=== PATIENT | male | born 1935 | race Two or more races ===

== ENCOUNTER 2019-03-02 15:12 | Inpatient (IN) | payer MEDICARE, MEDICAID ==
[~2019-03-02] VITALS: Ht 165.1 cm; Wt 74.4 kg
--- NOTE | 2019-03-02 15:22 | NUR ---
PATIENT BIB RA FROM [facility]. PATIENT AWAKE, ALERT AND ORIENTED X 2. VERBALLY RESPONSIVE AND RESPONDS T O VERBAL AND TACTILE STIMULI. NO ACUTE DISTRESS. NOTED WITH OLD TRACH SITE, STOMA PRESENT COVERED WITH DRY DRESSING. DR. HUBBARD AT BEDSIDE. WILL CONTINUE TO MONITOR
[2019-03-02] MEDS ORDERED: FAMO20TA8 PO (15:32)
[2019-03-02] MEDS ORDERED: BISA10SU61 RC (15:32)
[2019-03-02] MEDS ORDERED: APIX2.5T PO (15:32)
[2019-03-02] MEDS ORDERED: MAGN400O6 PO (15:32)
[2019-03-02] MEDS ORDERED: MV-M1CAP15 PO (15:32)
[2019-03-02] MEDS ORDERED: QUET25TA PO (15:32)
[2019-03-02] MEDS ORDERED: ASCO500T9 PO (15:32)
[2019-03-02] MEDS ORDERED: METO25TA3 PO (15:32)
[2019-03-02] MEDS ORDERED: SENN-168 PO (15:32)
[2019-03-02] MEDS ORDERED: BUME0.5T5 PO (15:32)
[2019-03-02] MEDS ORDERED: DOCU-141 PO (15:32)
[2019-03-02] MEDS ORDERED: ACET-868 PO (15:32)
[2019-03-02] MEDS ORDERED: POLY17PO4 PO (15:32)
[2019-03-02] MEDS ORDERED: ALBU0.633 IH (15:32)
[2019-03-02] MEDS ORDERED: LACT20SO4 PO (15:32)
[2019-03-02] MEDS ORDERED: ATOR40TA PO (15:32)
[2019-03-02] MEDS ORDERED: QUET50TA PO (15:32)
[2019-03-02 15:37] LABS: BASOPHILS # (AUTO) 0.1 /CMM (0.0-0.2); BASOPHILS % (AUTO) 0.7 % (0.0-2.0); EOSINOPHILS % (AUTO) 1.7 % (0.0-6.0); HEMATOCRIT 37 % (39-51); HEMOGLOBIN 12.2 g/dL (13.5-17.5); LYMPHOCYTES # (AUTO) 1.3 /CMM (0.8-4.8); LYMPHOCYTES % (AUTO) 18.5 % (20.0-44.0); MEAN CORPUSCULAR HGB CONC 33 g/dl (31.0-36.0); MEAN CORPUSCULAR VOLUME 86 fL (80-96); MONOCYTES # (AUTO) 0.5 /CMM (0.1-1.30); MONOCYTES % (AUTO) 6.9 % (2.0-12.0); NEUTROPHILS # (AUTO) 5.2 /CMM (1.8-8.9); NEUTROPHILS % (AUTO) 72.2 % (43.0-81.0); PLATELET COUNT (AUTO) 191 /CMM (150-450); RED BLOOD CELL COUNT(AUTO) 4.34 MIL/uL (4.5-6.0); WHITE BLOOD COUNT (AUTO) 7.2 K/uL (4.3-11.0)
[2019-03-02 15:44] LABS: CARBON DIOXIDE 30 mmol/L (21-32); CHLORIDE 103 mmol/L (98-107); CREATININE 2.3 mg/dL (0.6-1.3); GLUCOSE 120 mg/dL (74-106); POTASSIUM 4.5 mmol/L (3.5-5.1); SODIUM SERUM 139 mmol/L (136-145); UREA NITROGEN, BLOOD 76 mg/dL (7-18)
[2019-03-02 15:50] LABS: ACETAMINOPHEN < 2 ug/ml (10-30); ALANINE AMINOTRANSFERASE 23 U/L (12-78); ALBUMIN 3.9 g/dL (3.4-5.0); ALCOHOL, BLOOD < 3 mg/dL (0-0); ALKALINE PHOSPHATASE 66 U/L (46-116); ASPARTATE AMINOTRANSFERASE 19 U/L (15-37); BILIRUBIN,DIRECT 0.2 mg/dL (0.0-0.2); BILIRUBIN,TOTAL 0.5 mg/dL (0.2-1.0); SALICYLATE < 2.8 mg/dL (2.8-20.0); TOTAL PROTEIN, SERUM 8.4 g/dL (6.4-8.2)
--- NOTE | 2019-03-02 15:50 | NUR ---
URINE COLLECTED AND SENT TO LAB
[2019-03-02] MEDS ORDERED: IV NS 0.9% 1,000 ML IV ONE (16:00)
[2019-03-02 16:15] LABS: APPEARANCE,URINE Clear (CLEAR); BILIRUBIN,URINE Negative (NEGATIVE); BLOOD, URINE Small Ery/uL (NEGATIVE); COLOR,URINE Yellow (YELLOW); KETONES,URINE Negative (NEGATIVE); LEUKOCYTE ESTERASE ,URINE Small (NEGATIVE); NITRITE, URINE Negative (NEGATIVE); PROTEIN,URINE Trace mg/dl (NEGATIVE); UGLUCOSE Negative (NEGATIVE); UROBILINOGEN,URINE 0.2 EU/dL (0.2)
[2019-03-02 16:19] LABS: BACTERIA,URINE 1+ /HPF (None Seen); SQUAMOUS EPITHELIAL CELL,UR Few /HPF (None Seen)
--- NOTE | 2019-03-02 19:10 | NUR ---
PLACED CALL TO GPS TO GIVE REPORT BUT PER OPERATIONS PLANT ATTENDANT, RECEIVING RN IS RECEIVING SHIFT CHANGE REPORT AT THIS TIME AND IS REQUESTING TO CALL BACK. SITTER REMAINS AT BEDSIDE. ENDORSED TO JAMES HALEY FOR ALLISON.
--- NOTE | 2019-03-02 20:00 | NUR ---
PT WAS TRANSFERRED TO 215 IN STABLE CONDITION.
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
[2019-03-02] MEDS ORDERED: MAG HYDROX/AL HYDROX/SIMETH 30 ML UDC PO PRN (20:30)
[2019-03-02] MEDS ORDERED: MAGNESIUM HYDROXIDE 30 ML UDC PO PRN (20:30)
[2019-03-02] MEDS ORDERED: ACETAMINOPHEN 325 MG TABLET PO PRN ×2 (20:30→23:30)
--- NOTE | 2019-03-02 21:11 | NUR ---
GPS RN NOTE, PATIENT UA RESULTS ARE FOLLOWS URINE LEUKOCYTE ESTERASE SMALL, URINE WBC 6-10 H, AND URINE BACTERIA 1+H. PATIENT ALSO NEEDS MED RECON REVIEWED AND APPROVED. PAGED [facility] AND INFORMED EMMANUEL HARRIS DNP OF MY FINDINGS. EMMANUEL HARRIS DNP ORDERED KEFLEX 250MG PO TID X 10 DAYS TO START IN THE A.M.. EMMANUEL HARRIS DNP ALSO SAID HE WILL REVIEW AND APPROVE MED RECON SOON POSSIBLE. ALL ORDERS NOTED AND CARRIED OUT. WILL CONTINUE TO MONITOR THIS PATIENT.
[2019-03-02] MEDS ORDERED: TEMAZEPAM 7.5 MG CAPSULE PO PRN (21:30)
--- NOTE | 2019-03-02 22:28 | NUR ---
GPS RN NOTE, PATIENT HAS A COMPLAINT OF NOT BEING ABLE TO SLEEP AND IS REQUESTING RESTORIL AT THIS TIME. PATIENT VITAL SIGNS ARE STABLE. GAVE RESTORIL 7.5MG PO HS PRN ORDERED. WILL REASSESS FOR INSOMNIA AND I WILL CONTINUE TO MONITOR THIS PATIENT.
[2019-03-02] MEDS ORDERED: BISACODYL SUPP (10 MG) 10 MG/SUPP.RECT SUPP.RECT RC SCH (23:30)
[2019-03-03] MEDS ORDERED: Z GUARD REMEDY 2 OZ OINT TP PRN (01:30)
--- NOTE | 2019-03-03 06:25 | NUR ---
PATIENT WAS PLACED ON 1:1 SITTER FOR HIGH FALL RISK.
[2019-03-03 08:00] VITALS: BP 129/65
[2019-03-03 09:42] LABS: CHOLESTEROL 96 mg/dL (<200); HDL CHOLESTEROL 42 mg/dL (40-60); LDL 50 mg/dL (0-99); TRIGLYCERIDES 44 mg/dL (30-150)
[2019-03-03] MEDS: CEPHALEXIN MONOHYDRATE 250 MG CAPSULE PO SCH ×3 (10:02→18:22)
[2019-03-03] MEDS: LORAZEPAM 0.5 MG TABLET PO PRN ×2 (10:02→21:29)
--- NOTE | 2019-03-03 10:02 | NUR ---
given ativan for agitation.
[2019-03-03] MEDS: BUMETANIDE (1 MG) 1 MG TABLET PO SCH (10:03)
[2019-03-03] MEDS: FAMOTIDINE (20 MG) 20 MG TABLET PO SCH (10:04)
[2019-03-03] MEDS: METOPROLOL SUCCINATE 25 MG TAB.SR.24H PO SCH ×2 (10:04→18:23)
[2019-03-03] MEDS: POLYETHYLENE GLYCOL 3350 17 GM POWD.PACK PO SCH (10:05)
[2019-03-03] MEDS: APIXABAN 2.5 MG TABLET PO SCH ×2 (10:07→18:22)
--- NOTE | 2019-03-03 11:08 | NUR ---
WOUND CARE CONSULT: PT PRESENTS WITH SACRAL SCARRING, TRACH STOMA, RT ABOVE KNEE AMPUTATION STUMP (CLEAR), PRESENT ON ADMISSION. DEFER TO MD FOR STOMA. PT TURNS AND REPOSITIONS HIMSELF IN BED AND IS ABLE TO TRANSFER TO WHEELCHAIR WITH ASSISTANCE. SITTER AT BEDSIDE. PT IS INCONTINENT. RECOMMENDATIONS MADE FOR SKIN PROTECTION. DISCUSSED WITH NURSING STAFF. WILL SEE PRN. MD IN AGREEMENT WITH PLAN OF CARE. CURRENT RAIMUNDO SCORE IS I7. Addendum: 03/03/19 at 1111 by JULY BRUNNER WNDNU Amended: Links added.
[2019-03-03 16:00] VITALS: BP 139/50
--- NOTE | 2019-03-03 16:00 | NUR ---
Elder Counselor Group Session-- Goal: Patient will attend group being held today from 11am -11:45 in the activities room and participate and/or actively listen to peers and be respectful. Intervention: SW invited patient to attend group session with peers regarding: the goal or positive outcome/s each pt. would like to see happen as a result of their stay in [facility]. SW respected patient�s self-determination and will continue to invite patient to future group sessions. Response: Patient declined to participate in today�s group social worker aide session. Plan: Patient will be invited to attend next social worker aide group held.
--- NOTE | 2019-03-03 17:30 | NUR ---
NOTED POX 90% WITH AFTERNOON VITALS-RECHECKED AND 89% TO 94%.PT. REQUESTED .02-APPLIED.
[2019-03-03] MEDS: DIVALPROEX SODIUM 125 MG TABLET.DR PO SCH ×2 (18:22→21:29)
[2019-03-03 19:46] VITALS: BP 141/59
[2019-03-03] MEDS: ATORVASTATIN 40 MG TABLET PO SCH (21:28)
[2019-03-03] MEDS: TEMAZEPAM 7.5 MG CAPSULE PO PRN (21:29)
[2019-03-03] MEDS: QUETIAPINE FUMARATE 100 MG TABLET PO SCH (21:29)
[2019-03-04 08:00] VITALS: BP 131/62
[2019-03-04] MEDS: QUETIAPINE FUMARATE 25 MG TABLET PO SCH (08:13)
[2019-03-04] MEDS: APIXABAN 2.5 MG TABLET PO SCH ×2 (08:13→16:19)
[2019-03-04] MEDS: CEPHALEXIN MONOHYDRATE 250 MG CAPSULE PO SCH ×3 (08:14→16:18)
[2019-03-04] MEDS: DIVALPROEX SODIUM 125 MG TABLET.DR PO SCH ×3 (08:14→22:02)
[2019-03-04] MEDS: BUMETANIDE (1 MG) 1 MG TABLET PO SCH (08:15)
[2019-03-04] MEDS: METOPROLOL SUCCINATE 25 MG TAB.SR.24H PO SCH ×2 (08:15→16:18)
[2019-03-04] MEDS: POLYETHYLENE GLYCOL 3350 17 GM POWD.PACK PO SCH (08:15)
[2019-03-04] MEDS: FAMOTIDINE (20 MG) 20 MG TABLET PO SCH (08:15)
[2019-03-04 16:18] VITALS: BP 133/69
[2019-03-04 16:39] VITALS: BP 133/69
[2019-03-04 20:00] VITALS: BP 120/52
[2019-03-04] MEDS: ATORVASTATIN 40 MG TABLET PO SCH (22:02)
[2019-03-04] MEDS: TEMAZEPAM 7.5 MG CAPSULE PO PRN (22:02)
[2019-03-04] MEDS: QUETIAPINE FUMARATE 100 MG TABLET PO SCH (22:02)
[2019-03-05 08:00] VITALS: BP 131/59
[2019-03-05] MEDS: BUMETANIDE (1 MG) 1 MG TABLET PO SCH (08:24)
[2019-03-05] MEDS: CEPHALEXIN MONOHYDRATE 250 MG CAPSULE PO SCH ×3 (08:24→16:10)
[2019-03-05] MEDS: FAMOTIDINE (20 MG) 20 MG TABLET PO SCH (08:25)
[2019-03-05] MEDS: DIVALPROEX SODIUM 125 MG TABLET.DR PO SCH ×3 (08:25→21:53)
[2019-03-05] MEDS: METOPROLOL SUCCINATE 25 MG TAB.SR.24H PO SCH ×2 (08:26→16:09)
[2019-03-05] MEDS: QUETIAPINE FUMARATE 25 MG TABLET PO SCH (08:26)
[2019-03-05] MEDS: POLYETHYLENE GLYCOL 3350 17 GM POWD.PACK PO SCH (08:29)
--- NOTE | 2019-03-05 10:26 | NUR ---
Per JANUARY Wood: JANUARY contacted and spoke to patient's responsible democrat, Nephew-Bay [phone] who stated that the patient has a hx. of aggressive behavior and that was the reason he began to reside at [facility].Per Bay, the patient was diagnosed with Dementia about 2 months ago. Per Bay, he will provide SW with pt.'s daughter, Cathleen's contact info. as she has more in-depth information about pt.
--- NOTE | 2019-03-05 10:27 | NUR ---
Initial Discharge Plan: The patient currently resides at [facility] [[address] [address]; [phone]]. Per Bay, he would like the patient to return there once ready for discharge. JANUARY called and spoke with accredited legal secretary, Edita from [facility] to inquire about patient's return once ready for discharge. Per Edita, admission coordinator was in meeting. JANUARY left a message and contact information for Amie S[facility] to be called back. JANUARY will continue to collaborate with IDT to ensure safe and proper discharge planning.
--- NOTE | 2019-03-05 10:28 | NUR ---
JANUARY called [facility] ([phone]) and spoke to Kim in admissions who stated that the facility is concerned about his aggressive behavior. JANUARY stated that the pt is calm and has not been aggressive on the unit. Kim stated that they would accept the pt back to their facility.
--- NOTE | 2019-03-05 10:32 | NUR ---
JANUARY called the pts nephew Bay Pratt ([phone]) and left a voicemail stating that the SW received confirmation that the pt can return to his facility. JANUARY also stated that she would like the contact information for the pts daughter, Cathleen.
[2019-03-05] MEDS: APIXABAN 2.5 MG TABLET PO SCH ×2 (10:38→16:17)
[2019-03-05 16:00] VITALS: BP 91/61
[2019-03-05 20:00] VITALS: BP 125/50
[2019-03-05] MEDS: ATORVASTATIN 40 MG TABLET PO SCH (21:53)
[2019-03-05] MEDS: TEMAZEPAM 7.5 MG CAPSULE PO PRN (21:53)
[2019-03-05] MEDS: QUETIAPINE FUMARATE 100 MG TABLET PO SCH (21:53)
[2019-03-06 08:00] VITALS: BP 125/52
[2019-03-06] MEDS: METOPROLOL SUCCINATE 25 MG TAB.SR.24H PO SCH ×2 (08:17→16:20)
[2019-03-06] MEDS: CEPHALEXIN MONOHYDRATE 250 MG CAPSULE PO SCH ×3 (08:17→16:19)
[2019-03-06] MEDS: FAMOTIDINE (20 MG) 20 MG TABLET PO SCH (08:17)
[2019-03-06] MEDS: QUETIAPINE FUMARATE 25 MG TABLET PO SCH (08:18)
[2019-03-06] MEDS: BUMETANIDE (1 MG) 1 MG TABLET PO SCH (08:18)
[2019-03-06] MEDS: DIVALPROEX SODIUM 125 MG TABLET.DR PO SCH ×3 (08:20→21:33)
[2019-03-06] MEDS: POLYETHYLENE GLYCOL 3350 17 GM POWD.PACK PO SCH (08:22)
[2019-03-06] MEDS: APIXABAN 2.5 MG TABLET PO SCH ×2 (08:22→17:07)
[2019-03-06 16:00] VITALS: BP 137/59
[2019-03-06 19:47] VITALS: BP 117/51
[2019-03-06] MEDS: QUETIAPINE FUMARATE 100 MG TABLET PO SCH (21:33)
[2019-03-06] MEDS: ATORVASTATIN 40 MG TABLET PO SCH (21:33)
[2019-03-06] MEDS: TEMAZEPAM 7.5 MG CAPSULE PO PRN (21:34)
[2019-03-07 08:00] VITALS: BP 125/55
[2019-03-07] MEDS: POLYETHYLENE GLYCOL 3350 17 GM POWD.PACK PO SCH (08:49)
[2019-03-07] MEDS: CEPHALEXIN MONOHYDRATE 250 MG CAPSULE PO SCH ×3 (08:49→18:29)
[2019-03-07] MEDS: METOPROLOL SUCCINATE 25 MG TAB.SR.24H PO SCH ×2 (08:50→18:29)
[2019-03-07] MEDS: QUETIAPINE FUMARATE 25 MG TABLET PO SCH (08:51)
[2019-03-07] MEDS: FAMOTIDINE (20 MG) 20 MG TABLET PO SCH (08:51)
[2019-03-07] MEDS: DIVALPROEX SODIUM 125 MG TABLET.DR PO SCH ×3 (08:52→21:21)
[2019-03-07] MEDS: BUMETANIDE (1 MG) 1 MG TABLET PO SCH (08:53)
[2019-03-07] MEDS: APIXABAN 2.5 MG TABLET PO SCH ×2 (08:55→18:33)
[2019-03-07 16:22] VITALS: BP 113/56
[2019-03-07 20:14] VITALS: BP 134/65
[2019-03-07] MEDS: ATORVASTATIN 40 MG TABLET PO SCH (21:21)
[2019-03-07] MEDS: QUETIAPINE FUMARATE 100 MG TABLET PO SCH (21:25)
[2019-03-08 08:00] VITALS: BP 114/53
[2019-03-08] MEDS: FAMOTIDINE (20 MG) 20 MG TABLET PO SCH (08:50)
[2019-03-08] MEDS: QUETIAPINE FUMARATE 25 MG TABLET PO SCH (08:51)
[2019-03-08] MEDS: BUMETANIDE (1 MG) 1 MG TABLET PO SCH (08:51)
[2019-03-08] MEDS: CEPHALEXIN MONOHYDRATE 250 MG CAPSULE PO SCH ×3 (08:51→17:32)
[2019-03-08] MEDS: DIVALPROEX SODIUM 125 MG TABLET.DR PO SCH ×3 (08:52→21:43)
[2019-03-08] MEDS: METOPROLOL SUCCINATE 25 MG TAB.SR.24H PO SCH ×2 (08:52→17:33)
[2019-03-08] MEDS: POLYETHYLENE GLYCOL 3350 17 GM POWD.PACK PO SCH (08:52)
[2019-03-08] MEDS: APIXABAN 2.5 MG TABLET PO SCH ×2 (08:53→17:35)
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
[2019-03-08 16:00] VITALS: BP 128/86
[2019-03-08 16:37] LABS: CALCIUM, SERUM 8.8 mg/dL (8.5-10.1); CARBON DIOXIDE 29 mmol/L (21-32); CHLORIDE 101 mmol/L (98-107); CREATININE 2.1 mg/dL (0.6-1.3); GLUCOSE 101 mg/dL (74-106); MAGNESIUM 2.2 mg/dL (1.8-2.4); POTASSIUM 4.8 mmol/L (3.5-5.1); SODIUM SERUM 138 mmol/L (136-145); UREA NITROGEN, BLOOD 76 mg/dL (7-18)
--- NOTE | 2019-03-08 18:41 | NUR ---
RN NOTE: HAVE BEEN ENCOURAGING FLUIDS TO THE PATIENT. PATIENT IS NOT BEING COMPLIANT AND RESISTING PLAN OF CARE.
[2019-03-08 20:00] VITALS: BP 140/54
[2019-03-08] MEDS: QUETIAPINE FUMARATE 100 MG TABLET PO SCH (21:44)
[2019-03-08] MEDS: ATORVASTATIN 40 MG TABLET PO SCH (21:44)
[2019-03-09 08:00] VITALS: BP 115/69
[2019-03-09] MEDS: POLYETHYLENE GLYCOL 3350 17 GM POWD.PACK PO SCH (09:18)
[2019-03-09] MEDS: BUMETANIDE (1 MG) 1 MG TABLET PO SCH (09:18)
[2019-03-09] MEDS: FAMOTIDINE (20 MG) 20 MG TABLET PO SCH (09:18)
[2019-03-09] MEDS: CEPHALEXIN MONOHYDRATE 250 MG CAPSULE PO SCH ×3 (09:18→16:32)
[2019-03-09] MEDS: QUETIAPINE FUMARATE 25 MG TABLET PO SCH (09:18)
[2019-03-09] MEDS: DIVALPROEX SODIUM 125 MG TABLET.DR PO SCH ×2 (09:18→21:44)
[2019-03-09] MEDS: METOPROLOL SUCCINATE 25 MG TAB.SR.24H PO SCH ×2 (09:19→16:32)
[2019-03-09] MEDS: APIXABAN 2.5 MG TABLET PO SCH ×2 (09:21→16:33)
[2019-03-09 11:17] LABS: BASOPHILS # (AUTO) 0.1 /CMM (0.0-0.2); BASOPHILS % (AUTO) 0.9 % (0.0-2.0); EOSINOPHILS % (AUTO) 2.2 % (0.0-6.0); HEMATOCRIT 39 % (39-51); HEMOGLOBIN 12.6 g/dL (13.5-17.5); LYMPHOCYTES % (AUTO) 14.2 % (20.0-44.0); MEAN CORPUSCULAR HGB CONC 33 g/dl (31.0-36.0); MEAN CORPUSCULAR VOLUME 85 fL (80-96); MONOCYTES # (AUTO) 0.5 /CMM (0.1-1.30); MONOCYTES % (AUTO) 6.3 % (2.0-12.0); NEUTROPHILS # (AUTO) 5.5 /CMM (1.8-8.9); NEUTROPHILS % (AUTO) 76.4 % (43.0-81.0); PLATELET COUNT (AUTO) 224 /CMM (150-450); RED BLOOD CELL COUNT(AUTO) 4.54 MIL/uL (4.5-6.0); WHITE BLOOD COUNT (AUTO) 7.3 K/uL (4.3-11.0)
[2019-03-09 11:27] LABS: CALCIUM, SERUM 9.2 mg/dL (8.5-10.1); CARBON DIOXIDE 25 mmol/L (21-32); CHLORIDE 103 mmol/L (98-107); CREATININE 1.9 mg/dL (0.6-1.3); GLUCOSE 128 mg/dL (74-106); MAGNESIUM 2.5 mg/dL (1.8-2.4); PHOSPHORUS 3.5 mg/dL (2.5-4.9); POTASSIUM 4.8 mmol/L (3.5-5.1); SODIUM SERUM 139 mmol/L (136-145); UREA NITROGEN, BLOOD 73 mg/dL (7-18)
--- NOTE | 2019-03-09 11:55 | NUR ---
RN-CO: NO SOB NOTED.
--- NOTE | 2019-03-09 12:36 | NUR ---
RN-CO: NO FALL INCIDENT SINCE PATIENT CAME IN THE UNIT. PATIENT IS AWARE OF FALL PREVENTION AND HE STATED HE'S BEEN ON WHEELCHAIR LONG TIME BUT I DID NOT FALL. 1:[address] ON A " LINE OF SIGHT."
--- NOTE | 2019-03-09 15:47 | NUR ---
GROUP NOTE: SW attempted to engage pt in group therapy on this present day discussing poor life choices and how they have affected pts life. However, pt was unable to participate due to pt being cognitively impaired and not being able to engage in conversation.
[2019-03-09 16:00] VITALS: BP 128/88
--- NOTE | 2019-03-09 19:16 | NUR ---
GPS RN NOTE, RECEIVED PATIENT AWAKE AND IN BED, NO S/S OR COMPLAINTS OF PAIN AT THIS TIME. PATIENT IS DISPLAYING NO S/S OF APPARENT DISTRESS AT THIS TIME. PATIENT BREATHING IS UNLABORED WITH EQUAL RISE AND FALL OF THE CHEST. PATIENT IS ALBANIAN SPEAKING ONLY. PATIENT IS ALERT AND ORIENTED X 1 ON ROOM AIR WITH A SPO2 OF 95%. PATIENT IS MED COMPLAINT, DISORGANIZED, ANXIOUS, HYPERVERBAL, COOPERATIVE, AND NEEDS REORIENTATION. PATIENT IS REFUSING SKIN ASSESSMENT. PATIENT DENIES SUICIDE AND HOMICIDAL IDEATIONS AT THIS TIME. PATIENT ASSISTED WITH TURNING AND REPOSITIONING Q2HR AND PRN FOR COMFORT AND CIRCULATION. PATIENT HAS NO NEEDS AT THIS TIME. PATIENT EDUCATED ON THE USE OF THE CALL SMYTH. PATIENT BED SIDE RAILS ARE UP X 2 FOR SAFETY, BED IS LOCKED, AND LOW WILL CONTINUE TO MONITOR AND MAINTAIN SAFETY.
[2019-03-09 20:06] VITALS: BP 139/52
[2019-03-09] MEDS: ATORVASTATIN 40 MG TABLET PO SCH (21:44)
[2019-03-09] MEDS: QUETIAPINE FUMARATE 100 MG TABLET PO SCH (21:44)
[2019-03-10 08:00] VITALS: BP 112/52
[2019-03-10] MEDS: DIVALPROEX SODIUM 125 MG TABLET.DR PO SCH ×2 (08:10→21:16)
[2019-03-10] MEDS: QUETIAPINE FUMARATE 25 MG TABLET PO SCH (08:10)
[2019-03-10] MEDS: CEPHALEXIN MONOHYDRATE 250 MG CAPSULE PO SCH ×3 (08:11→16:18)
[2019-03-10] MEDS: FAMOTIDINE (20 MG) 20 MG TABLET PO SCH (08:11)
[2019-03-10] MEDS: BUMETANIDE (1 MG) 1 MG TABLET PO SCH (08:11)
[2019-03-10] MEDS: POLYETHYLENE GLYCOL 3350 17 GM POWD.PACK PO SCH (08:12)
[2019-03-10] MEDS: APIXABAN 2.5 MG TABLET PO SCH ×2 (08:13→16:19)
[2019-03-10] MEDS: METOPROLOL SUCCINATE 25 MG TAB.SR.24H PO SCH ×2 (08:13→16:18)
--- NOTE | 2019-03-10 08:14 | NUR ---
TERA NOTE: 0900 BP MED HELD D/T BP 112/52
[2019-03-10] MEDS: LORAZEPAM 0.5 MG TABLET PO PRN (10:09)
--- NOTE | 2019-03-10 10:09 | NUR ---
RN NOTE: PATIENT HAS INCREASED AGITATION AND RESTLESSNESS, PRN ATIVAN 0.5 MG PO GIVEN. WILL RE-ASSESS BEHAVIOR. Addendum: 03/10/19 at 1026 by FAUSTINO RAINEY RN 0.5 MG OF ATIVAN WAS WASTED D/T PATIENT'S REFUSAL AT FIRST. WHEN I WASTED THE MEDICATION, MAIL READER BROUGHT PATIENT OVER AND STATED THAT HE IS NOW WILLING TO TAKE THE MEDICATION. ANOTHER ATIVAN 0.5 MG PO PRN WAS PULLED TO ADMINISTER THE MEDICATION. OBSERVED PATIENT TAKE THE MEDICATION. WILL RE-ASSESS BEHAVIOR.
--- NOTE | 2019-03-10 10:57 | NUR ---
JANUARY called [facility] ([phone]) and spoke to Kim in admissions and she stated that she wanted some updated notes to be faxed over so that their mysql database administrator can review.
--- NOTE | 2019-03-10 11:06 | NUR ---
JANUARY faxed updated notes to [facility] with attention to Yarely to the fax number: [phone].
--- NOTE | 2019-03-10 12:34 | NUR ---
RN NOTE: ENCOURAGED PATIENT TO DRINK MORE FLUIDS. PATIENT HAS DRANK 24 OZ OF WATER MIXED WITH CRANBERRY JUICE, 8 OZ COFFEE AND A 8 OZ CUP OF WATER.
--- NOTE | 2019-03-10 14:27 | NUR ---
JANUARY called the pts nephew Bay Pratt ([phone]) and left him a voicemail stating that the pt is going to be discharged back to [facility] tomorrow.
--- NOTE | 2019-03-10 15:26 | NUR ---
GROUP NOTE: SW attempted to engage pt in group therapy on this present day discussing discharge planning. However, pt was unable to participate due to pt being cognitively impaired and not being able to engage in conversation or be in a group setting. Pt was sitting in a wheelchair with his head down not wanting to be bothered.
[2019-03-10 16:00] VITALS: BP 124/50
[2019-03-10 20:20] VITALS: BP 122/49
[2019-03-10] MEDS: QUETIAPINE FUMARATE 100 MG TABLET PO SCH (21:16)
[2019-03-10] MEDS: ATORVASTATIN 40 MG TABLET PO SCH (21:16)
[2019-03-11 08:00] VITALS: BP 123/51
--- NOTE | 2019-03-11 08:56 | NUR ---
RN-CO: DR BOSTON (COVERING FOR DR LEDBETTER) ORDERED TO DISCONTINUE HOLD AND DISCHARGE PATIENT TODAY. JUAN IS AWARE OF HIS DISCHARGE. HE DENIED SUICIDAL AND HOMICIDAL IDEATION, DENIED AUDITORY AND VISUAL HALLUCINATION. NO AGGRESSION NOTED. NO ACUTE DISTRESS NOTED.
[2019-03-11] MEDS: DIVALPROEX SODIUM 125 MG TABLET.DR PO SCH (09:00)
[2019-03-11] MEDS: QUETIAPINE FUMARATE 25 MG TABLET PO SCH ×2 (09:00→10:01)
[2019-03-11] MEDS: FAMOTIDINE (20 MG) 20 MG TABLET PO SCH (09:00)
[2019-03-11] MEDS: POLYETHYLENE GLYCOL 3350 17 GM POWD.PACK PO SCH (09:00)
[2019-03-11] MEDS: BUMETANIDE (1 MG) 1 MG TABLET PO SCH ×2 (09:00→10:03)
[2019-03-11] MEDS: CEPHALEXIN MONOHYDRATE 250 MG CAPSULE PO SCH ×3 (09:00→12:37)
[2019-03-11] MEDS: METOPROLOL SUCCINATE 25 MG TAB.SR.24H PO SCH (09:00)
[2019-03-11] MEDS: APIXABAN 2.5 MG TABLET PO SCH (09:00)
--- NOTE | 2019-03-11 15:28 | NUR ---
Discharge Note: Pt was discharged to [facility] ([facility]) located at [address] [place] [address]; ([phone]). Pt was transported via [facility] at 12PM. Pt�s nephew, Bay Pratt ([phone]), was notified via voicemail. Upon discharge, the pt appeared to be in a depressed mood and presented with a distressed affect. Pt denied both suicidal and homicidal ideation as well as auditory and visual hallucinations. Pt will be under the care of his psychiatrist, Dr. Grider, located at [address], [place] [address]; [phone] and his physician relations manager, Dr. Stern, located at [address] [place] [address]; .
--- NOTE | 2019-03-11 15:31 | NUR ---
DISCHARGE NOTE PT DISCHARGED TO [facility], REPORT CALLED IN TO NURSE HIMS CODER ON DUTY. PT IS A/OX1-2, DISORIENTED AT TIMES. NO C/O PAIN OR SOB. VSS. EXITCARE, BELONGINGS LIST, AND MEDICATION RECONCILIATION COMPLETED AND GIVEN TO [facility]. PT HAD NO IV UPON D/C. ID BAND REMOVED. PT MOOD AT FIRST WAS CALM HOWEVER PT BEGAN STEADILY ESCALATING. PT IRRITATED, REFUSED SKIN DISCHARGE PHOTO. PT LEFT HOSPITAL IN PRIVATE AMBULANCE WITH [facility].
== END 2019-03-11 15:25 | DRG 885 ==
LOC: ER 15:15 → GPS 18:43
PROVIDERS: ADMIT Psychiatry & Neurology Psychiatry; ATTEND Nurse Practitioner Acute Care
DX: F29 Unspecified psychosis not due to a substance or known physiological condition (principal); N17.0 Acute kidney failure with tubular necrosis; N18.9 Chronic kidney disease, unspecified; N39.0 Urinary tract infection, site not specified; D68.59 Other primary thrombophilia; F03.91 Unspecified dementia, unspecified severity, with behavioral disturbance; I25.10 Atherosclerotic heart disease of native coronary artery without angina pectoris; K21.9 Gastro-esophageal reflux disease without esophagitis; I48.91 Unspecified atrial fibrillation; E78.5 Hyperlipidemia, unspecified; J45.909 Unspecified asthma, uncomplicated; I12.9 Hypertensive chronic kidney disease with stage 1 through stage 4 chronic kidney disease, or unspecified chronic kidney disease; F39 Unspecified mood [affective] disorder; Z87.891 Personal history of nicotine dependence; Z89.611 Acquired absence of right leg above knee; Z79.01 Long term (current) use of anticoagulants; Z85.819 Personal history of malignant neoplasm of unspecified site of lip, oral cavity, and pharynx
CPT/HCPCS: 36415; 80048-TC; 80061-TC; 80076-TC; 80305; 81000-TC; 82565-TC; 83735-TC; 84100-TC; 85025-TC; 87081-TC; 87086-TC; G0480; J7030